=== PATIENT | female | born 1970 | race African-American/Black ===

== ENCOUNTER 2019-03-14 15:47 | Emergency (ER) | payer MEDICARE ==
[~2019-03-14] VITALS: Ht 162.6 cm; Wt 109.8 kg
[2019-03-14 16:08] VITALS: BP 165/89
--- NOTE | 2019-03-14 16:23 | PHYS DOC ---
Past Medical History Past Medical History: Hypertension (JOSE BARKLEY APRN) Past Surgical History: Other Additional Past Surgical Histo: sternomity, femur fracture repair, thyroidectomy (JOSE BARKLEY APRN) Alcohol Use: None Drug Use: None (JOSE BARKLEY APRN) Attending Signature I have participated in the care of this patient and I have reviewed and agree with all pertinent clinical information above including history, exam, and recommendations. (MONE CARRASQUILLO MD) Adult General Chief Complaint Chief Complaint: ANKLE PROBLEM HPI HPI Patient is a 48 year old female patient who presents to the ED today complaining of 7 out of 10 left low back pain, right knee pain, right ankle pain, symptoms began 3 days ago after she fell. Patient states she was walking at a storage unit when she stepped on some multiple and rolled her ankle and fell. Patient denies any loss of consciousness. States most of her pain is on touching this regions. She describes the pain as throbbing and intermittent. Denies anything specifically relieving the pain. Denies any pain radiating to bilateral lower extremities. Denies any loss of bowel/ bladder function. (JOSE BARKLEY APRN) Review of Systems Review of Systems Constitutional: Denies fever or chills [] : Denies dysuria or hematuria [] Musculoskeletal: Reports low back pain, right knee pain, right ankle pain Integument: Denies rash or skin lesions [] Neurologic: Denies headache, focal weakness or sensory changes [] All other systems were reviewed and found to be within normal limits, except as documented in this note. (JOSE BARKLEY APRN) Physical Exam Physical Exam Constitutional: Well developed, well nourished, no acute distress, non-toxic appearance. [] Abdomen: Bowel sounds normal, soft, no tenderness, no masses, no pulsatile cameron s. [] Skin: Warm, dry, no erythema, no rash. [] Back: Diffuse paraspinal muscle tenderness to the left lumbar spine, no midline lumbar spine tenderness, no CVA tenderness. [] Extremities: Right anterior knee with bruising, no obvious deformity to the right lower extremity. Slight tenderness on palpation of the right anterior knee. No tenderness on palpation. Full range of motion to the right knee and right ankle. +2 right pedal pulse. Cap refill less than 2 seconds the right toes. Neurologic: Alert and oriented X 3, normal motor function, normal sensory function, no focal deficits noted. [] Psychologic: Affect normal, judgement normal, mood normal. [] (JOSE BARKLEY APRN) Current Patient Data Vital Signs Vital Signs Date Time Temp Pulse Resp B/P (MAP) Pulse Ox O2 Delivery O2 Flow Rate FiO2 03/14/19 16:08 98.3 87 18 165/89 (114) 100 Room Air 98.3 (MONE CARRASQUILLO MD) EKG EKG [] (JOSE BARKLEY APRN) Radiology/Procedures Radiology/Procedures [] (JOSE BARKLEY APRN) Course & Med Decision Making Course & Med Decision Making Pertinent Labs and Imaging studies reviewed. (See chart for details) This is a 48-year-old female patient who presents to the ED today with left low back pain, right ankle and right knee pain that began 3 days ago after falling. X-rays of the lumbar spine, right knee in her right ankle interpreted by Dr. Carrasquillo are negative for any acute. Patient was discharged home. Ice elevation encouraged. Orthopedic doctor provided for follow-up as an outpatient. (JOSE BARKLEY APRN) Dragon Disclaimer Dragon Disclaimer This electronic medical record was generated, in whole or in part, using a voice recognition dictation system. (JOSE BARKLEY APRN) Departure Departure Impression: Primary Impression: Fall from standing Additional Impressions: Lumbar contusion Right ankle sprain Right knee sprain Disposition: HOME, SELF-CARE Condition: STABLE Referrals: MARLENE SHABAZZ (PCP) ANDREW HARRIS II, MD follow up in one week Patient Instructions: Ankle Sprain, Contusion, [id number], Knee Sprain, [id number] Additional Instructions: You were evaluated in the emergency room after falling, your lumbar spine x- rays, right knee and right ankle x-rays are negative for any acute findings. Try to ice and elevate the extremity. Take the prescribed medicines as needed for pain. Follow-up with the orthopedic doctor provided in 1-2 weeks. Scripts Cyclobenzaprine Hcl (CYCLOBENZAPRINE HCL) 10 Mg Tablet 1 TAB PO TID, #30 TAB Prov: JOSE BARKLEY APRN 03/14/19 Naproxen (NAPROXEN) 500 Mg Tablet. 1 TAB PO BID, #20 TAB 0 Refills Prov: JOSE BARKLEY [employer] 03/14/19 Problem Qualifiers Primary Impression: Fall from standing Encounter type: initial encounter Qualified Codes: W19.XXXA - Unspecified fall, initial encounter Additional Impressions: Lumbar contusion Encounter type: initial encounter Qualified Codes: S30.0XXA - Contusion of lower back and pelvis, initial encounter Right ankle sprain Encounter type: initial encounter Involved ligament of ankle: unspecified ligament Qualified Codes: S93.401A - Sprain of unspecified ligament of right ankle, initial encounter Right knee sprain Encounter type: initial encounter Involved ligament of knee: unspecified ligament Qualified Codes: S83.91XA - Sprain of unspecified site of right knee, initial encounter JOSE BARKLEY [employer] Mar 14, 2019 16:23 MONE CARRASQUILLO MD Mar 15, 2019 03:59
--- NOTE | 2019-03-14 18:19 | RAD ---
Study: KNEE RIGHT 4V Indication: Fall. Pain. Comparison: None. Findings: No acute fracture or traumatic malalignment. Small joint line osteophytes. No large knee joint effusion. Normal osseous mineralization. Impression: No acute osseous abnormality at the right knee. Electronically signed by: NATIVIDAD GARAY MD (03/14/2019 6:16 PM) [id number]
--- NOTE | 2019-03-14 18:23 | RAD ---
Study: ANKLE RIGHT 3V Indication: Fall. Pain. Comparison: None. Findings: Widening of the distal syndesmosis on the oblique view. The talar dome is intact. Tiny focus of mineralization at the tip of the lateral malleolus only seen on the AP view. Achilles insertion enthesophyte formation and a plantar calcaneal spur. The distal Achilles appears somewhat thickened. Impression: 1. Apparent widening of the distal syndesmosis on the AP oblique view. Punctate focus of mineralization is seen at the tip of the lateral malleolus only on the AP view. The findings are indeterminate for acute injury as the syndesmotic widening could also be related to technique and the focus of mineralization chronic. If there is persistent lateral ankle pain, recommend follow-up weightbearing radiographs for further characterization. 2. The distal Achilles appears thickened which could represent underlying tendinosis. Electronically signed by: NATIVIDAD GARAY MD (03/14/2019 6:20 PM) [id number]
[2019-03-14] MEDS ORDERED: NAPR500T8 PO (18:31)
[2019-03-14] MEDS ORDERED: CYCL10TA2 PO (18:31)
--- NOTE | 2019-03-14 18:32 | RAD ---
Exam: Lumbar spine 2 views INDICATION: Fall, pain TECHNIQUE: Frontal and lateral views of the lumbar spine with spot magnification view of the lumbosacral junction. Comparisons: None FINDINGS: Vertebral body heights and alignment are well-maintained. Mild bilateral facet arthropathy greatest at L4-L5 and L5-S1. Visualized paraspinal soft tissues are unremarkable. IMPRESSION: Mild spondylotic changes lumbar spine as described above. Electronically signed by: Duncan Mao MD (03/14/2019 6:28 PM) [facility]
== END 2019-03-14 18:38 | disposition home or self-care (01) ==
LOC: ER 15:47
DX: S83.91XA Sprain of unspecified site of right knee, initial encounter (principal); S93.401A Sprain of unspecified ligament of right ankle, initial encounter; S30.0XXA Contusion of lower back and pelvis, initial encounter; I10 Essential (primary) hypertension; W18.31XA Fall on same level due to stepping on an object, initial encounter; Y93.89 Activity, other specified; Y92.89 Other specified places as the place of occurrence of the external cause; Y99.8 Other external cause status
CPT/HCPCS: 72100; 73564; 73610; 99284